=== PATIENT | male | born 1980 | race Hispanic/Latino ===

== ENCOUNTER → 2023-12-05 07:11 | Outpatient (REF) | payer OTHER, SELFPAY ==
[2023-12-05 07:55] LABS: Hematocrit 40.9 % (39.0-52.0); Mean Corp Hgb Conc. 34.2 g/dL (33.0-37.0); Mean Corpuscular Hgb 28.4 pg (27.0-31.0); Mean Platelet Volume 10.6 fL (7.4-10.4); Platelet Count 215 10^3/uL (130-400); Red Blood Cell Count 4.93 10^6/uL (4.70-6.10); Red Cell Dist. Width 13.4 % (11.5-14.5); White Blood Cell Count 6.7 10^3/uL (4.8-10.8)
[2023-12-05 08:21] LABS: HDL Cholesterol 42 mg/dl; LDL Cholesterol, Calculated 132 mg/dl; Total Cholesterol 201 mg/dl (50-199); Triglyceride 137 mg/dl (10-149); Very Low Density Lipoprotein 27 mg/dl (0-30)
[2023-12-05 08:41] LABS: Glycohemoglobin (HgbA1c) 6.6 % (4.0-5.6)
[2023-12-05 08:42] LABS: Vitamin D, 25-OH*** 31.3 ng/mL (30-80)
[2023-12-05 08:55] LABS: TSH Reflex To Free T4 2.46 uIU/ml (0.47-4.68)
== END ==
LOC: REG 07:11
PROVIDERS: ATTENDING PHYSICIAN Nurse Practitioner Adult Health
DX: E11.9 Type 2 diabetes mellitus without complications (principal); Z00.00 Encounter for general adult medical examination without abnormal findings; E78.1 Pure hyperglyceridemia; E55.9 Vitamin D deficiency, unspecified
CPT/HCPCS: 36415; 80061; 82306; 83036; 84443; 85027

== ENCOUNTER → 2024-04-13 09:46 | Outpatient (REF) | payer OTHER, SELFPAY ==
[2024-04-13 11:56] LABS: ALT (SGPT) 30 U/L (0-50); Albumin 4.3 g/dl (3.5-5.0); Alkaline Phosphatase 93 U/L (38-126); Blood Urea Nitrogen 17 mg/dl (9-20); Carbon Dioxide 24 mmol/L (22-30); Chloride 105 mmol/L (98-107); Glucose 128 mg/dl (70-99); Potassium 4.7 mmol/L (3.5-5.1); Sodium 137 mmol/L (135-145); Total Bilirubin 0.6 mg/dl (0.2-1.3); eGFR > 60.00
[2024-04-13 12:09] LABS: AST (SGOT) 26 U/L (17-59)
[2024-04-13 12:17] LABS: Microalbumin, Random Urine < 0.6 mg/dl (0.6-1.7)
[2024-04-13 13:49] LABS: Glycohemoglobin (HgbA1c) 6.8 % (4.0-5.6)
== END ==
LOC: CLINIC 09:46
PROVIDERS: ATTENDING PHYSICIAN Nurse Practitioner Adult Health
DX: E11.9 Type 2 diabetes mellitus without complications (principal)
CPT/HCPCS: 36415; 80053; 82043; 82570; 83036

== ENCOUNTER → 2024-08-13 07:07 | Outpatient (REF) | payer OTHER, SELFPAY ==
[2024-08-13 09:17] LABS: Blood Urea Nitrogen 20 mg/dl (9-20); Calcium 9.5 mg/dl (8.4-10.2); Carbon Dioxide 26 mmol/L (22-30); Chloride 108 mmol/L (98-107); Glucose 143 mg/dl (70-99); Potassium 4.4 mmol/L (3.5-5.1); Sodium 140 mmol/L (135-145); eGFR > 60.00
== END ==
LOC: REG 07:07
PROVIDERS: ATTENDING PHYSICIAN Nurse Practitioner Adult Health
DX: E11.9 Type 2 diabetes mellitus without complications (principal)
CPT/HCPCS: 36415; 80048; 83036

== ENCOUNTER → 2024-11-22 07:08 | Outpatient (REF) | payer OTHER, SELFPAY ==
[2024-11-22 08:06] LABS: ALT (SGPT) 42 U/L (0-50); AST (SGOT) 28 U/L (17-59); Albumin 4.1 g/dl (3.5-5.0); Alkaline Phosphatase 83 U/L (38-126); Blood Urea Nitrogen 16 mg/dl (9-20); Calcium 9.0 mg/dl (8.4-10.2); Carbon Dioxide 26 mmol/L (22-30); Chloride 105 mmol/L (98-107); Glucose 146 mg/dl (70-99); HDL Cholesterol 42 mg/dl; LDL Cholesterol, Calculated 112 mg/dl; Potassium 4.5 mmol/L (3.5-5.1); Sodium 137 mmol/L (135-145); Total Protein 7.3 g/dl (6.3-8.2); Very Low Density Lipoprotein 56 mg/dl (0-30); eGFR > 60.00
[2024-11-22 09:12] LABS: Glycohemoglobin (HgbA1c) 6.9 % (4.0-5.6)
== END ==
LOC: CLINIC 07:08
PROVIDERS: ATTENDING PHYSICIAN Nurse Practitioner Adult Health
DX: E11.9 Type 2 diabetes mellitus without complications (principal)
CPT/HCPCS: 36415; 80053; 80061; 83036